=== PATIENT | female | born 1980 | race Caucasian/White ===

== ENCOUNTER 2024-01-10 11:53 | Emergency (ER) | payer OTHER ==
[~2024-01-10] VITALS: Ht 172.7 cm; Wt 86.4 kg
[2024-01-10] MEDS ORDERED: BENADRYL ALLERG50 MG PO (12:03)
[2024-01-10] MEDS ORDERED: PEPCID 20MG TAB20 MG PO (12:03)
[2024-01-10] MEDS ORDERED: ZYRTEC10 M3 PO (12:03)
[2024-01-10] MEDS ORDERED: PROZAC20 M1 PO (12:04)
[2024-01-10] MEDS ORDERED: PREDNISONE20 M1 PO (12:46)
[2024-01-10] MEDS ORDERED: RT ALBUTEROL CC18 GM IH (12:47)
[2024-01-10 12:58] VITALS: BP 110/66
== END 2024-01-10 12:59 | disposition home or self-care (01) ==
LOC: ED 11:53
DX: R05.9 Cough, unspecified (principal); F41.9 Anxiety disorder, unspecified; Z91.048 Other nonmedicinal substance allergy status